=== PATIENT | male | born 1990 | race Caucasian/White ===

== ENCOUNTER 2017-03-29 08:08 | Emergency (ER) | payer BC, OTHER ==
[~2017-03-29] VITALS: Ht 165.1 cm; Wt 79.0 kg
[~2017-03-29 08:08] MED LIST: PRED20TA PO; PROM12.57 PO
[2017-03-29 08:22] VITALS: TEMP 36.6; Ht 165.1 cm; Wt 79.0 kg
[2017-03-29] MEDS ORDERED: IBUPROFEN 800 MG TAB PO STA (08:34)
--- NOTE | 2017-03-29 08:35 | EMERGENCY ROOM VISIT NOTE ---
History Report prepared by Val: Stephanie Martin Under the Supervision of: Dr. Abdon Baca M.D. First contact with patient: 08:16 Chief Complaint: SHOULDER PAIN Stated Complaint: LEFT SHOULDER PAIN - RADIATING TO NECK,CRAMPS History of Present Illness The patient is a 26 year old male who presents to the Emergency Room with complaints of persistent left shoulder pain that began yesterday morning. He describes his discomfort as a muscle spasm, rating his discomfort as a 7/10 in severity. The patient reports that on Saturday evening around 1800 he went to the chiropractor due to back pain. He states that he has been to the chiropractor in the past, noting that Saturday evening his back was feeling better. The patient states that morning he woke with left neck pain and left shoulder pain. He states that the pain radiates down his left arm and additionally reports left arm numbness. 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 He denies working out often or any recent injury. The patient denies any fever, chills, cough, congestion, shortness of breath, nausea, vomiting, urinary symptoms, or leg weakness. The patient states that he took Aleve and Stephanie yesterday without relief of his symptoms. Source of History: patient Onset: yesterday morning Position: shoulder (left) Symptom Intensity: 7/10 Quality: other (muscle spasm) Timing: other (persistent) Associated Symptoms: + numbness (left arm), No fevers, No chills, No cough, No SOB, No nausea, No vomiting, No urinary symptoms, No weakness Review of Systems See HPI for pertinent positives and negatives. A total of ten systems were reviewed and were otherwise negative. Past Medical & Surgical No active medical problems. Family History No pertinent family history stated. Social History Housing Status: lives with family Occupation Status: employed Current/Historical Medications Scheduled PRN Diazepam (Valium), 2 MG PO DAILY PRN for Muscle Spasms Ibuprofen Tab (Motrin), 800 MG PO Q8H PRN for Pain Allergies Coded Allergies: No Known Allergies (Unverified , 12/28/06) Physical Exam Vital Signs Date Time Temp Pulse Resp B/P (MAP) Pulse Ox O2 Delivery O2 Flow Rate FiO2 03/29/17 09:38 70 20 125/70 98 03/29/17 08:22 36.6 75 20 148/82 98 Room Air Physical Exam GENERAL: Awake, alert, well-appearing, in no distress HENT: Normocephalic, atraumatic. Oropharynx unremarkable. EYES: Normal conjunctiva. Sclera non-icteric. NECK: Supple. No nuchal rigidity. FROM. No JVD. RESPIRATORY: Clear to auscultation. CARDIAC: Regular rate, normal rhythm. Extremities warm and well perfused. Pulses equal. ABDOMEN: Soft, non-distended. No tenderness to palpation. No rebound or guarding. No masses. RECTAL: Deferred. MUSCULOSKELETAL: Palpable muscle spasm, left paraspinal muscle, extending down to trapezius and subscapular region, otherwise distal pulse motor sensory intact. Chest examination reveals no tenderness. The back is symmetrical on inspection without obvious abnormality. There is no CVA tenderness to palpation. No joint edema. LOWER EXTREMITIES: Calves are equal size bilaterally and non-tender. No edema. No discoloration. NEURO: Normal sensorium. No sensory or motor deficits noted. SKIN: No rash or jaundice noted. Medical Decision & Procedures Medications Administered Medications (Trade) Dose Ordered Sig/Declan Route Start Time Stop Time Status Last Admin Dose Admin Ibuprofen (Motrin Tab) 800 mg NOW STAT PO 03/29/17 08:34 03/29/17 08:36 DC 03/29/17 09:07 800 MG Diazepam (Valium Tab) 2 mg 0900 PO 03/29/17 09:00 03/29/17 09:01 DC 03/29/17 09:07 2 MG ED Course 0817: The patient was evaluated in room B3B. A complete history and physical exam was performed. I discussed the exam findings with the patient and his mother and I discussed the treatment plan. They verbalized complete understanding and agreement. The patient is ready for discharge shortly. 0834: Ordered Motrin Tab 800 mg PO. 0900: Ordered Diazepam 2 mg PO. Medical Decision Triage Nursing notes reviewed. The patient's presentation and history were concerning for muscle spasm, muscle strain, radiculopathy, fracture, dislocation, soft tissue injury. I reviewed the patient's past medical history, medications, and the nursing notes as described above. Medication Reconciliation: I attest that I have personally reviewed the patient' s current medication list Patient was found to have a slightly elevated blood pressure due to circumstances. I do not believe that the patient requires hypertension monitoring. The patient is a 26-year-old gentleman who presents to emergency department with left neck and shoulder pain per history of present illness. The patient is no acute distress, afebrile with stable vital signs. Exam patient has a palpable muscle spasm the left cervical paraspinal muscles extending down to trapezius and subscapular area. Distal motor sensory intact. Patient's neck is supple. Denies any symptoms of urinary retension or bladder incontinence. The patient reports symptoms occurring in the setting of going to the chiropractor the night before however the patient denies any dizziness or vertigo and is otherwise neurologically intact therefore I believe vertebral artery dissection unlikely. Findings and plan for follow-up d/w patient. Patient agreeable and d/c'd per discharge instructions. Impression Primary Impression: [place] Scribe Attestation The scribe's documentation has been prepared under my direction and personally reviewed by me in its entirety. I confirm that the note above accurately reflects all work, treatment, procedures, and medical decision making performed by me. Departure Information Dispostion Home / Self-Care Prescriptions Diazepam (VALIUM) 2 Mg Tab 2 MG PO DAILY Y for Muscle Spasms for 2 Days, #2 TAB Prov: Abdon Baca M.D. 03/29/17 Ibuprofen Tab (MOTRIN) 800 Mg Tab 800 MG PO Q8H Y for Pain for 10 Days, #30 TAB Prov: Abdon Baca M.D. 03/29/17 Referrals Isaias Luis M.D. (PCP) Forms HOME CARE DOCUMENTATION FORM, IMPORTANT VISIT INFORMATION Patient Instructions My [facility], [place] Additional Instructions Please follow up with your primary care physician in the next 1-3 days for re- evaluation. You likely have a muscle spasm/strain. Otherwise, your exam did not show signs of an emergent condition at this time. Take ibuprofen for pain as directed. Apply heating pad at 20 minute intervals throughout the day for additional pain relief and muscle relaxation. Valium as needed for additional muscle relaxation as needed. Return to the emergency department for worsening symptoms as described in the accompanying instructions. Work Instructions Return To Work: 1 week
[2017-03-29] MEDS ORDERED: DIAZEPAM 5MG TAB PO ONE (08:45)
[2017-03-29] MEDS ORDERED: DIAZEPAM 2MG TAB PO SCH (09:00)
[2017-03-29] MEDS ORDERED: DIAZ2TAB PO (09:06)
[2017-03-29] MEDS ORDERED: IBUP-1451 PO (09:06)
[2017-03-29 09:38] VITALS: BP 125/70; PULSE 70; O2SAT 98
== END 2017-03-29 09:39 | disposition home or self-care (01) ==
LOC: C.EDB 08:09
DX: M43.6 Torticollis (principal)